=== PATIENT | male | born 1980 | race American Indian/Alaskan Native ===

== ENCOUNTER 2022-04-15 11:26 | Emergency (ER) | payer SELFPAY ==
[2022-04-15 11:37] VITALS: BP 116/82
--- NOTE | 2022-04-15 13:45 | XRay Report ---
XR hand 3+V LT INDICATION / CLINICAL INFORMATION: injury. COMPARISON: None available. FINDINGS: BONES/JOINT(S): No acute fracture or subluxation. No significant degenerative changes. No focal bone erosions or focal osteopenia to suggest inflammatory arthropathy. SOFT TISSUES: No significant abnormality. ADDITIONAL FINDINGS: None. Signer Name: Joseph Crowell MD Signed: 04/15/2022 1:40 PM Workstation Name: [id number]
== END 2022-04-15 16:04 | disposition left against medical advice (07) ==
LOC: ED 11:26
DX: S61.419A Laceration without foreign body of unspecified hand, initial encounter (principal); Z53.21 Procedure and treatment not carried out due to patient leaving prior to being seen by health care provider; X58.XXXA Exposure to other specified factors, initial encounter; Y93.89 Activity, other specified; Y92.89 Other specified places as the place of occurrence of the external cause; Y99.8 Other external cause status

== ENCOUNTER → 2022-04-15 18:23 | Emergency (ER) | payer SELFPAY | END | disposition left against medical advice (07) | LOC: ED 18:23 | DX: S60.922A Unspecified superficial injury of left hand, initial encounter (principal); Z53.21 Procedure and treatment not carried out due to patient leaving prior to being seen by health care provider; X58.XXXA Exposure to other specified factors, initial encounter; Y93.89 Activity, other specified; Y92.89 Other specified places as the place of occurrence of the external cause; Y99.8 Other external cause status ==